=== PATIENT | male | born 1965 ===

== ENCOUNTER 2017-06-28 14:05 | Emergency (ER) | payer MEDICAID ==
[2017-06-28 14:27] VITALS: PULSE 66; TEMP 98.1; O2SAT 100
[2017-06-28] MEDS ORDERED: Naproxen 550 mg Tab PO STA (14:36)
[2017-06-28] MEDS ORDERED: Naproxen 550 mg Tab PO ONE (14:44)
--- NOTE | 2017-06-28 15:01 | C.PDOC ---
History Of Present Illness Patient presents to ED with c/o of left knee pain since yesterday developed while walking, Patient denies history of similar pain, trauma, numbness, weakness or any other complaints at this time. Time Seen by Provider: 06/28/17 14:27 Chief Complaint (Nursing): Lower Extremity Problem/Injury History Per: Patient History/Exam Limitations: no limitations Onset/Duration Of Symptoms: Days Current Symptoms Are (Timing): Still Present Past Medical History Reviewed: Historical Data, Nursing Documentation, Vital Signs Vital Signs: Last Vital Signs Temp 98.1 F 06/28/17 14:25 Pulse 66 06/28/17 15:31 Resp 20 06/28/17 15:31 BP 119/73 06/28/17 15:31 Pulse Ox 100 06/28/17 15:33 - Medical History PMH: No Chronic Diseases Surgical History: No Surg Hx Family History: States: No Known Family Hx - Social History Hx Alcohol Use: No Hx Substance Use: No Review Of Systems Cardiovascular: Negative for: Chest Pain Gastrointestinal: Negative for: Nausea, Vomiting Musculoskeletal: Positive for: Leg Pain Skin: Negative for: Rash, Bruising Neurological: Negative for: Weakness, Numbness Physical Exam - Physical Exam Appears: Non-toxic, No Acute Distress Skin: Warm, Dry, No Rash Head: Atraumatic, Normacephalic Eye(s): bilateral: Normal Inspection Oral Mucosa: Moist Neck: Normal ROM, Supple Extremity: Normal ROM, No Tenderness, Capillary Refill (<2 seconds), No Deformity, No Swelling Extremity: Bilateral: Normal ROM Pulses: Left Dorsalis Pedis: Normal, Right Dorsalis Pedis: Normal Neurological/Psych: Oriented x3, Normal Motor, Normal Sensation Gait: Steady ED Course And Treatment O2 Sat by Pulse Oximetry: 100 (RA) Pulse Ox Interpretation: Normal Medical Decision Making Medical Decision Making: Plan: Left knee xray, pain medication xrays are negative. Ambulatory in the ED with steady gait. Patient was instructed to follow up with the medical doctor/clinic within 1-2 days. Return to the ED if worsened. Disposition - Disposition Referrals: [facility] [Outside] Disposition: HOME/ ROUTINE Disposition Time: 15:31 Condition: GOOD Additional Instructions: Follow up with the Orthopedists within 1-2 days. Return if worsened. Prescriptions: Acetaminophen [Tylenol] 325 mg PO Q6 PRN #30 tab PRN Reason: Pain, Mild (1-3) Naproxen [Naprosyn] 500 mg PO BID #20 tab Instructions: Knee Pain (DC) Forms: [employer] (Maltese) Print Language: KHMER - Clinical Impression Clinical Impression: Joint pain, Knee pain - PA / GEOGRAPHIC INFORMATION SYSTEM ANALYST / Resident Statement MD/DO has reviewed & agrees with the documentation as recorded. - Scribe Statement The provider has reviewed the documentation as recorded by the Raman German All medical record entries made by the Raman were at my direction and personally dictated by me. I have reviewed the chart and agree that the record accurately reflects my personal performance of the history, physical exam, medical decision making, and the department course for this patient. I have also personally directed, reviewed, and agree with the discharge instructions and disposition.
--- NOTE | 2017-06-28 15:02 | RAD ---
PROCEDURE: Left Knee Radiographs. HISTORY: Pain. COMPARISON: None. FINDINGS: BONES: No acute fracture. JOINTS: Unremarkable. JOINT EFFUSION: None. OTHER FINDINGS: None. IMPRESSION: No demonstrated fracture or dislocation.
[2017-06-28 15:33] VITALS: BP 119/73; RESP 20
== END 2017-06-28 15:48 | disposition home or self-care (01) ==
LOC: C.ER 14:05
DX: M25.562 Pain in left knee (principal)

== ENCOUNTER 2017-08-12 13:34 | Emergency (ER) | payer MEDICAID ==
[2017-08-12 14:19] VITALS: BP 121/76; PULSE 64; RESP 20; TEMP 98.8; O2SAT 98
--- NOTE | 2017-08-12 15:16 | C.PDOC ---
History Of Present Illness 52 y/o male presents to the ER complaining of right sided neck pain which has been present for the past 5 days. Patient states he awoke one day with pain and it has gradually worsened and feels stiff, he cannot turn his neck without pain. Patient reports that the pain is now radiating to his head and ear. Denies fever, ear drainage, impaired hearing, nausea, dizziness, vision changes. Time Seen by Provider: 08/12/17 14:20 Chief Complaint (Nursing): Headache History Per: Patient History/Exam Limitations: no limitations Onset/Duration Of Symptoms: Days Current Symptoms Are (Timing): Still Present Severity: Moderate Past Medical History Reviewed: Historical Data, Nursing Documentation, Vital Signs Vital Signs: Last Vital Signs Temp 98.8 F 08/12/17 14:05 Pulse 64 08/12/17 14:05 Resp 20 08/12/17 14:05 BP 121/76 08/12/17 14:05 Pulse Ox 98 08/12/17 16:29 - Medical History PMH: No Chronic Diseases Surgical History: No Surg Hx Family History: States: No Known Family Hx - Social History Hx Alcohol Use: Yes Hx Substance Use: No - Immunization History Hx Tetanus Toxoid Vaccination: No Hx Influenza Vaccination: No Hx Pneumococcal Vaccination: No Review Of Systems Except As Marked, All Systems Reviewed And Found Negative. Constitutional: Negative for: Fever, Chills Eyes: Negative for: Vision Change ENT: Negative for: Ear Discharge Gastrointestinal: Negative for: Nausea Musculoskeletal: Positive for: Neck Pain (right-sided neck pain) Neurological: Negative for: Dizziness Physical Exam - Physical Exam Appears: Non-toxic, No Acute Distress Skin: Normal Color, Warm, Dry Head: Atraumatic, Normacephalic Eye(s): bilateral: Normal Inspection Ear(s): Bilateral: Normal Nose: Normal Oral Mucosa: Moist Throat: Normal, No Erythema, No Exudate Neck: Decreased ROM (unable to fully rotate neck to left side secondary to pain) , Other (right sternocleidomastoid muscle tenderness with mild inflammation, right trapezius muscle tenderness and spasm, ) Chest: Symmetrical Cardiovascular: Rhythm Regular Respiratory: Normal Breath Sounds, No Rales, No Rhonchi, No Wheezing Extremity: Normal ROM Neurological/Psych: Oriented x3, Normal Speech ED Course And Treatment O2 Sat by Pulse Oximetry: 98 (RA) Pulse Ox Interpretation: Normal Medical Decision Making Medical Decision Making: Impression: neck spasm and tenderness Plan: * Toradol * Valium Progress: Dr Buck also examined patient and agreed symptoms related to muscle and spasm Patient medicated and observed in ED. On reevaluation, patient has no fever and in no distress. He reports pain has improved, still has mild tenderness to palpation but able to move neck slightly more with no severe pain. Disposition Counseled Patient/Family Regarding: Diagnosis, Need For Followup, Rx Given - Disposition Referrals: Alyssa Perez MD [Staff Provider] - Disposition: HOME/ ROUTINE Disposition Time: 15:47 Condition: IMPROVED Additional Instructions: Vaya a dalal mdico o la clnica en 2-5 may sin falta, para mas evaluacin. [place] los medicamentos rashad indicado. Volver a la marciano de emergencia en cualquier momento si los sntomas persisten o empeoran. Prescriptions: Cyclobenzaprine [Cyclobenzaprine HCl] 10 mg PO TID #30 tab Ibuprofen [Motrin] 600 mg PO Q8 #30 tab Instructions: Muscle Spasms (DC) Forms: [employer] (Italian) Print Language: ROMANIAN - POA Present On Arrival: None - Clinical Impression Clinical Impression: Muscle spasms of neck - PA / CLINICAL ADMINISTRATIVE COORDINATOR / Resident Statement MD/DO has reviewed & agrees with the documentation as recorded. - Scribe Statement The provider has reviewed the documentation as recorded by the Scribe Durga Lorenzo Provider Attestation All medical record entries made by the Scribe were at my direction and personally dictated by me. I have reviewed the chart and agree that the record accurately reflects my personal performance of the history, physical exam, medical decision making, and the department course for this patient. I have also personally directed, reviewed, and agree with the discharge instructions and disposition.
== END 2017-08-12 15:56 | disposition home or self-care (01) ==
LOC: C.ER 13:34
DX: M62.838 Other muscle spasm (principal)
CPT/HCPCS: 96372; 99284; J1885

== ENCOUNTER 2017-08-15 13:17 | Emergency (ER) | payer MEDICAID, OTHER ==
--- NOTE | 2017-08-15 15:29 | RAD ---
PROCEDURE: Cervical Spine Radiographs. Study is limited due to partial obscuration of the odontoid by overlying occiput in the open-mouth projection. The odontoid is vaguely seen in the extended meraz view however. HISTORY: Pain. COMPARISON: None. FINDINGS: BONES: Mild chronic appearing anterior wedging of several cervical segments felt to be degenerative in origin. No acute compression fractures DISC SPACES: Multilevel degenerative spondylosis. Changes include varying degrees of disc space narrowing, endplate eburnation with anterolateral and smaller posterior osteophyte formation. Mild uncovertebral facet arthropathy present as well SOFT TISSUES: Normal. No prevertebral soft tissue swelling. OTHER FINDINGS: None. IMPRESSION: No acute fractures.Mild chronic appearing anterior wedging of several cervical segments felt to be degenerative in origin.
[2017-08-15 15:58] VITALS: BP 126/83; PULSE 60; RESP 18; TEMP 97.8; O2SAT 99
--- NOTE | 2017-08-15 17:48 | C.PDOC ---
History Of Present Illness 52 year old male presents to the emergency department with complaints of chronic neck pain persisting for more than one week. Patient reports that he was seen here in the ED for the same presentation and was given pain medication. Patient reports that he failed to follow-up with the clinic. He denies recent trauma or falls. Chief Complaint (Nursing): Back Pain History Per: Patient History/Exam Limitations: no limitations Onset/Duration Of Symptoms: Other (greater than one week) Current Symptoms Are (Timing): Still Present Quality Of Discomfort: "Pain" Previous Symptoms: Neck Pain, Chronic Pain Past Medical History Reviewed: Historical Data, Nursing Documentation, Vital Signs Vital Signs: Last Vital Signs Temp 97.8 F 08/15/17 15:57 Pulse 60 08/15/17 15:57 Resp 18 08/15/17 15:57 BP 126/83 08/15/17 15:57 Pulse Ox 99 08/15/17 18:02 - Medical History PMH: No Chronic Diseases Surgical History: No Surg Hx Family History: States: No Known Family Hx - Social History Hx Alcohol Use: Yes Hx Substance Use: No - Immunization History Hx Tetanus Toxoid Vaccination: Yes Hx Influenza Vaccination: No Hx Pneumococcal Vaccination: No Review Of Systems Except As Marked, All Systems Reviewed And Found Negative. Musculoskeletal: Positive for: Neck Pain Physical Exam - Physical Exam Appears: Non-toxic, No Acute Distress Skin: Warm, Dry Head: Atraumatic Eye(s): bilateral: Normal Inspection Nose: Normal Throat: Normal, No Erythema, No Exudate Neck: Other (diffuse right sided neck tenderness) Cardiovascular: Rhythm Regular Respiratory: Normal Breath Sounds Neurological/Psych: Oriented x3, Normal Speech, Normal Cognition ED Course And Treatment O2 Sat by Pulse Oximetry: 99 (RA) Pulse Ox Interpretation: Normal - Other Rad XR Cervical Spine X-Ray: Viewed By Me, Read By Radiologist Interpretation: IMPRESSION: No acute fractures.Mild chronic appearing anterior wedging of several cervical segments felt to be degenerative in origin. Progress Note: Plan: XR Cervical Spine and AP LAT Disposition - Disposition Referrals: [facility] [Outside] [facility] [Outside] Disposition: HOME/ ROUTINE Disposition Time: 15:40 Condition: GOOD Additional Instructions: HECTOR DRISCOLL, thank you for letting us take care of you today. Your provider was Kiel Vaughan DO and you were treated for NECK/BACK PAIN. The emergency medical care you received today was directed at your acute symptoms. If you were prescribed any medication, please fill it and take as directed. It may take several days for your symptoms to resolve. Return to the Emergency Department if your symptoms worsen, do not improve, or if you have any other problems. Please contact your doctor or call one of the physicians/clinics you have been referred to that are listed on the Patient Visit Information form that is included in your discharge packet. Bring any paperwork you were given at discharge with you along with any medications you are taking to your follow up visit. Our treatment cannot replace ongoing medical care by a primary care provider outside of the emergency department. Thank you for allowing the [facility] team to be part of your care today. Follow up with your primary care doctor or our clinic this week for re- evaluation and further management. HECTOR DRISCOLL, erick por dejarnos atenderlo raza. Luna proveedor fue Kiel Passafaro DO y usted recibi tratamiento para NECK / BACK PAIN. La atencin m dica de emergencia que recibi hoy estaba dirigida a tania sntomas agudos. Si le prescribieron algn medicamento, llnelo y tome segn las indicaciones. Tania s ntomas pueden tardar varios may en resolverse. Regrese al Departamento de Emergencia si tania sntomas empeoran, no mejoran o si tiene algn otro problema. Comunquese con luna mdico o llame a kajal de los mdicos / clnicas a los que mai sido referido que figura en el formulario de Informacin de visita del paciente que se incluye en luna paquete de agapito. Traiga todos los documentos que recibi al momento del agapito junto con los medicamentos que est tomando en luna visita de seguimiento. Nuestro tratamiento no puede reemplazar la atencin mdica en curso por un proveedor de atencin primaria fuera del departamento de emergencia. Erick por permitir que el equipo de [facility] sea parte de luna cuidado hoy. Jacob un seguimiento con luna mdico de atencin primaria o nuestra clnica esta semana para giovanni reevaluacin y administracin adicional. Prescriptions: traMADol [Ultram] 50 mg PO Q8 PRN #15 tab PRN Reason: Pain, Severe (8-10) Instructions: Generalized Neck Pain (DC) Forms: Gen Discharge Inst Setswana, [employer] (formerly [employer]) (Setswana) Print Language: AZERI - Clinical Impression Clinical Impression: Cervical radiculitis - Scribe Statement The provider has reviewed the documentation as recorded by the Scribe (Osbaldo Ruiz) Provider Attestation: All medical record entries made by the Scribe were at my direction and personally dictated by me. I have reviewed the chart and agree that the record accurately reflects my personal performance of the history, physical exam, medical decision making, and the department course for this patient. I have also personally directed, reviewed, and agree with the discharge instructions and disposition.
== END 2017-08-15 15:58 | disposition home or self-care (01) ==
LOC: C.ER 13:17
DX: M54.12 Radiculopathy, cervical region (principal)

== ENCOUNTER 2018-01-18 15:53 | Emergency (ER) | payer SELFPAY ==
[2018-01-18 16:22] VITALS: BP 118/72; PULSE 65; RESP 16; TEMP 97.7; O2SAT 98
--- NOTE | 2018-01-18 16:39 | C.PDOC ---
History Of Present Illness 52-year-old male presents to the ED for evaluation of left wrist injury sustained 2 days ago. Patient states while working he was holding onto an object, and the left wrist was twisted. He reports prior history of fracture to the same wrist. Now patient complains of pain and swelling to the left wrist. He denies any numbness, tingling, or extremity weakness. Time Seen by Provider: 01/18/18 16:33 Chief Complaint (Nursing): Upper Extremity Problem/Injury History Per: Patient History/Exam Limitations: no limitations Onset/Duration Of Symptoms: Days (x3) Current Symptoms Are (Timing): Still Present Severity: Moderate Exacerbating Factor(s): Movement Past Medical History Reviewed: Historical Data, Nursing Documentation, Vital Signs Vital Signs: Last Vital Signs Temp 97.7 F 01/18/18 16:18 Pulse 65 01/18/18 16:18 Resp 16 01/18/18 16:18 BP 118/72 01/18/18 16:18 Pulse Ox 98 01/18/18 16:18 - Medical History PMH: Kidney Stones Family History: States: No Known Family Hx - Social History Hx Tobacco Use: No Hx Alcohol Use: Yes Hx Substance Use: No - Immunization History Hx Tetanus Toxoid Vaccination: Yes Hx Influenza Vaccination: No Hx Pneumococcal Vaccination: No Review Of Systems Musculoskeletal: Positive for: Hand Pain (left wrist) Skin: Negative for: Rash, Lesions Neurological: Negative for: Weakness, Numbness, Incoordination Physical Exam - Physical Exam Appears: Well, Non-toxic, No Acute Distress Skin: Warm, Dry, No Rash Head: Atraumatic, Normacephalic Eye(s): bilateral: Normal Inspection Oral Mucosa: Moist Neck: Normal ROM Chest: Symmetrical Extremity: Tenderness (to the left radial wrist), Capillary Refill (less than 2 sec), No Deformity, Swelling (minimal swelling to the left radial wrist), Other (Able to move all digits) Pulses: Left Radial: Normal, Right Radial: Normal Neurological/Psych: Oriented x3, Normal Motor, Normal Sensation, Other (No focal deficits) ED Course And Treatment O2 Sat by Pulse Oximetry: 98 (RA) Pulse Ox Interpretation: Normal Medical Decision Making Medical Decision Making: Impression: Left wrist injury Plan: Motrin PO given for pain Progress: Volar splint applied. Disposition Counseled Patient/Family Regarding: Diagnosis, Need For Followup, Rx Given - Disposition [facility]errals: [facility] [Outside] [facility] [[facility]] Disposition: HOME/ ROUTINE Disposition Time: 16:38 Condition: GOOD Prescriptions: Ibuprofen [Motrin] 600 mg PO Q8 #30 tab Instructions: Wrist Sprain (DC) Forms: [employer] (Swedish) Print Language: PALESTINIAN - POA Present On Arrival: None - Clinical Impression Clinical Impression: Wrist sprain - PA / MED SPEC / Resident Statement MD/DO has reviewed & agrees with the documentation as recorded. - Scribe Statement The provider has reviewed the documentation as recorded by the Scribe Michelle Steven All medical record entries made by the Wilderiblaurie were at my direction and perso tania dictated by me. I have reviewed the chart and agree that the record accurately reflects my personal performance of the history, physical exam, medical decision making, and the department course for this patient. I have also personally directed, reviewed, and agree with the discharge instructions and disposition.
== END 2018-01-18 17:15 | disposition home or self-care (01) ==
LOC: C.ER 15:53
DX: S63.502A Unspecified sprain of left wrist, initial encounter (principal); X50.1XXA Overexertion from prolonged static or awkward postures, initial encounter; Y92.89 Other specified places as the place of occurrence of the external cause